=== PATIENT | female | born 1980 ===

== ENCOUNTER 2016-06-12 19:32 | Emergency (ER) | payer OTHER ==
[2016-06-12 19:38] VITALS: BP 124/71; PULSE 57; RESP 16; TEMP 98; O2SAT 96
--- NOTE | 2016-06-12 21:26 | ED PDOC ---
HPI: Abdomen Time Seen by Provider: 06/12/16 19:57 Chief Complaint (Nursing): Abdominal Pain Chief Complaint (Provider): Abdominal Pain History Per: Patient History/Exam Limitations: no limitations Onset/Duration Of Symptoms: Hrs (x3 hours) Current Symptoms Are (Timing): Still Present Additional Complaint(s): 36 y/o female who presents to the emergency department with a complaint of a sudden onset of abdominal pain around 19:00 today. Described as a waxing and waning sharp pain, similar to cramping but worse. Denies pain radiating elsewhere, nausea, vomiting, diarrhea, or constipation. Last bowel movement was prior to leaving the house. Last menstrual period was 05/20/2016 which was shorter than usual. PMD: None (moved from [place] 2 years ago and does not have a PMD) Past Medical History Reviewed: Historical Data, Nursing Documentation, Vital Signs Vital Signs: Last Vital Signs Temp 98 F 06/12/16 19:35 Pulse 57 L 06/12/16 19:35 Resp 16 06/12/16 19:35 BP 124/71 06/12/16 19:35 Pulse Ox 96 06/12/16 22:44 - Medical History PMH: Hypothyroidism - Surgical History Surgical History: Appendectomy Other surgeries: Goiter thyroid removal - Family History Family History: States: No Known Family Hx - Social History Current smoker - smoking cessation education provided: Yes Alcohol: Social Drugs: Cannabis, Cocaine - Home Medications Home Medications: Ambulatory Orders Medication Instructions Recorded Naproxen [Naprosyn] 1 tab PO BID PRN #60 tab 06/12/16 - Allergies Allergies/Adverse Reactions: Allergies Allergy/AdvReac Type Severity Reaction Status Date / Time No Known Allergies Allergy Verified 06/12/16 19:35 Review of Systems ROS Statement: Except As Marked, All Systems Reviewed And Found Negative Gastrointestinal: Positive for: Abdominal Pain. Negative for: Nausea, Vomiting , Diarrhea, Constipation Physical Exam - Reviewed Nursing Documentation Reviewed: Yes Vital Signs Reviewed: Yes - Physical Exam Appears: Positive for: Non-toxic, No Acute Distress Head Exam: Positive for: ATRAUMATIC, NORMOCEPHALIC Skin: Positive for: Normal Color, Warm, Dry Eye Exam: Positive for: Normal appearance. Negative for: Conjunctival injection Neck: Positive for: Normal, Supple Cardiovascular/Chest: Positive for: Regular Rate, Rhythm. Negative for: Murmur Respiratory: Positive for: Normal Breath Sounds. Negative for: Accessory Muscle Use, Respiratory Distress Gastrointestinal/Abdominal: Positive for: Soft, Tenderness (Mild suprapubic tenderness to palpation) Extremity: Positive for: Normal ROM Neurologic/Psych: Positive for: Alert, Oriented - Laboratory Results Result Diagrams: 06/12/16 21:15 06/12/16 21:15 - ECG O2 Sat by Pulse Oximetry: 96 (RA) Pulse Ox Interpretation: Normal Medical Decision Making Medical Decision Making: Time: 19:57 Initial impression: Abdominal pain Initial plan: --COMP Metabolic Panel --ED Urine (POC) --ED Urine Dipstick (POC) --CBC w/ differential --Toradol 15 mg IV --IV insertion --Transvaginal (US) --Revaluation Time: 10:44 --US Pelvis, Transvaginal FINDINGS: Uterus/cervix: The fibroid uterus measures 9.3 x 7.3 x 6.5 cm and is anteverted. Multiple well-circumscribed areas of mixed echogenicity are identified, presumably fibroids the largest within the lower uterine segment, posteriorly measuring 2.3 cm in greatest dimension. The endometrium is thickened measuring 24 mm. Right ovary: Unremarkable in echogenicity and size measuring 3.2 x 3.0 x 1.6 cm. No mass. Normal blood flow. Left ovary: The left ovary is enlarged measuring 5.4 x 3.9 x 3.5 cm. Dopplerable flow is identified. A rounded focus of mixed echogenicity is identified, measuring 3.3 x 3.2 x 2.7 cm. Free fluid: Free fluid is identified within the cul-de-sac. IMPRESSION: Fibroid uterus. Complex left adnexal cyst, as detailed above Scribe Attestation: Documented by Sue Angulo, acting as a scribe for Denise Aguilar MD. Provider Scribe Attestation: All medical record entries made by the Scribe were at my direction and personally dictated by me. I have reviewed the chart and agree that the record accurately reflects my personal performance of the history, physical exam, medical decision making, and the department course for this patient. I have also personally directed, reviewed, and agree with the discharge instructions Disposition - Clinical Impression Clinical Impression: Fibroid, Ovarian cyst Counseled Patient/Family Regarding: Studies Performed, Diagnosis, Need For Followup, Rx Given - [facility]position [facility] Disposition: Routine/Home Disposition Time: 23:00 Condition: IMPROVED Prescriptions: Naproxen [Naprosyn] 1 tab PO BID PRN #60 tab PRN Reason: Pain Instructions: Uterine Fibroids (ED), Ovarian Cyst (ED)
[2016-06-12 21:27] LABS: BASO # 0.1 K/uL (0.0-0.2); BASO % 0.7 % (0.0-2.0); EOS # 0.2 K/uL (0.0-0.7); EOS % 2.3 % (0.0-4.0); HEMATOCRIT 34.4 % (34.0-47.0); LYMPH # 2.3 K/uL (1.0-4.3); LYMPH % 26.3 % (20.0-40.0); MEAN CELL VOLUME 74.9 fl (81.0-99.0); MEAN CORPUSCULAR HEMOGLOBIN 24.1 pg (27.0-31.0); MEAN CORPUSCULAR HGB CONC 32.2 g/dL (33.0-37.0); MONO # 0.6 K/uL (0.0-0.8); MONO % 6.6 % (0.0-10.0); NEUT # 5.6 K/uL (1.8-7.0); NEUT % 64.1 % (50.0-75.0); RED CELL DISTRIBUTION WIDTH 18.3 % (11.5-14.5); WHITE BLOOD COUNT 8.7 K/uL (4.8-10.8)
[2016-06-12 21:41] LABS: ALKALINE PHOSPHATASE 89 U/L (38-126); ALT/SGPT 26 U/L (9-52); AST/SGOT 38 U/L (14-36); BILIRUBIN,TOTAL 0.4 mg/dl (0.2-1.3); BLOOD UREA NITROGEN 13 mg/dl (7-17); CALCIUM 9.5 mg/dL (8.4-10.2); CARBON DIOXIDE 22 mmol/L (22-30); CHLORIDE 105 mmol/L (98-107); GFR AFRICAN-AMERICAN > 60; GLUCOSE,RANDOM 84 mg/dL (65-105); POTASSIUM 4.1 MMOL/L (3.6-5.0); SODIUM 141 mmol/l (132-148); TOTAL PROTEIN 8.5 G/DL (6.3-8.2)
--- NOTE | 2016-06-12 22:43 | US ---
EXAM: US Pelvis, Transvaginal CLINICAL HISTORY: 36 years old, female; Pain; Pelvic pain; Additional info: Sharp pelvic pain R/O torsion TECHNIQUE: Real-time transvaginal pelvic ultrasound (complete) with image documentation. Transvaginal imaging was used for better evaluation of the endometrium and adnexa. COMPARISON: No relevant prior studies available. FINDINGS: Uterus/cervix: The fibroid uterus measures 9.3 x 7.3 x 6.5 cm and is anteverted. Multiple well-circumscribed areas of mixed echogenicity are identified, presumably fibroids the largest within the lower uterine segment, posteriorly measuring 2.3 cm in greatest dimension. The endometrium is thickened measuring 24 mm. Right ovary: Unremarkable in echogenicity and size measuring 3.2 x 3.0 x 1.6 cm. No mass. Normal blood flow. Left ovary: The left ovary is enlarged measuring 5.4 x 3.9 x 3.5 cm. Dopplerable flow is identified. A rounded focus of mixed echogenicity is identified, measuring 3.3 x 3.2 x 2.7 cm. Free fluid: Free fluid is identified within the cul-de-sac. IMPRESSION: Fibroid uterus. Complex left adnexal cyst, as detailed above.
== END 2016-06-12 23:41 | disposition home or self-care (01) ==
LOC: H.ER 19:32
DX: N83.209 Unspecified ovarian cyst, unspecified side (principal); D25.9 Leiomyoma of uterus, unspecified; E03.9 Hypothyroidism, unspecified; F17.200 Nicotine dependence, unspecified, uncomplicated